=== PATIENT | male | born 1960 | race Caucasian/White ===

== ENCOUNTER 2018-12-09 09:52 | Emergency (ER) | payer OTHER ==
[2018-12-09 09:59] VITALS: TEMP 98.4
[2018-12-09] MEDS ORDERED: DIPH,PERTUS(ACELL)TETVAC-LF 0.5 ML VIAL IM ONE (10:19)
[2018-12-09] MEDS ORDERED: ceFAZolin IN SWFI 2 GM/20 ML SYRINGE IVP STA (10:19)
[2018-12-09] MEDS ORDERED: HYDROmorphone 1 MG/ML 1 ML SYRINGE IVP STA (10:21)
--- NOTE | 2018-12-09 10:26 | ED ---
General Adult HPI - General Chief complaint: Skin/Abscess/Foreign Body Stated complaint: hand injury Time Seen by Provider: 12/09/18 10:05 Source: patient, EMS, RN notes reviewed Mode of arrival: EMS Limitations: no limitations - History of Present Illness Initial comments: Patient is a pleasant 58-year-old male presenting to the emergency Department wi th left hand injury. Incident occurred just prior to arrival. Patient was helping another person do some work using a table saw. Patient accidentally cut his hand. He states he is not inattentive. Injury is left hand, more so the small finger. Patient has difficulty making a fist and moving his hand. Discomfort is somewhat severe. Patient denies any other area of injury. Patient is right-hand dominant. Patient does have history of previous left small finger injury with deformity. No head injury or loss of consciousness. No neck or back pain. No chest pain or dyspnea. No abdominal pain. Unclear last tetanus immunization. - Related Data Home Medications Medication Instructions Recorded Confirmed No Known Home Medications 12/09/18 12/09/18 Allergies Allergy/AdvReac Type Severity Reaction Status Date / Time No Known Allergies Allergy Verified 12/09/18 10:33 Review of Systems ROS Statement: Those systems with pertinent positive or pertinent negative responses have been documented in the HPI. ROS Other: All systems not noted in ROS Statement are negative. Constitutional: Denies: fever Eyes: Denies: eye pain ENT: Denies: ear pain Respiratory: Denies: cough Cardiovascular: Denies: chest pain Endocrine: Denies: fatigue Gastrointestinal: Denies: abdominal pain Genitourinary: Denies: dysuria Musculoskeletal: Reports: as per HPI. Denies: back pain Skin: Denies: rash Neurological: Denies: headache Past Medical History Additional Past Medical History / Comment(s): hep C History of Any Multi-Drug Resistant Organisms: MRSA Date of last positivie culture/infection: 2008 MDRO Source:: back Past Surgical History: Hernia Repair Past Psychological History: Anxiety, Depression Smoking Status: Current every day smoker Past Alcohol Use History: Occasional Past Drug Use History: Marijuana General Exam Limitations: no limitations General appearance: alert Head exam: Present: atraumatic, normocephalic Eye exam: Present: normal appearance Neck exam: Present: normal inspection. Absent: tenderness Respiratory exam: Present: normal lung sounds bilaterally Cardiovascular Exam: Present: regular rate, normal rhythm GI/Abdominal exam: Present: soft. Absent: tenderness Left Hand Wrist exam: Present: tenderness, laceration, other (Patient has large left hand laceration of the palmar side extending from the thenar eminence to the small finger. There is exposed tendon and muscle. Patient does have partial flexion of the thumb and index finger. Patient does not have significant movement of the middle through small fingers. Small finger is deformed. Cap refill of each finger is less than 2-3 seconds. Patient does have minimal sensation of index through small fingers distally. Patient does have good sensation of the thumb.) Back exam: Present: normal inspection. Absent: tenderness Neurological exam: Present: alert, other (Left hand weakness secondary to laceration) Psychiatric exam: Present: normal affect, normal mood Skin exam: Present: other (Large hand laceration) Course Vital Signs 12/09/18 12/09/18 09:55 10:55 Temperature 98.4 F Pulse Rate 50 L 54 L Respiratory 20 18 Rate Blood Pressure 189/91 197/97 O2 Sat by Pulse 99 95 Oximetry - Reevaluation(s) Reevaluation #1: 12/09/18 10:35 Yahaira Jaramillo with orthopedics was notified. She is finishing up an OR case at this time. 12/09/18 10:40 Wound was irrigated with saline and Betadine 12/09/18 11:07 Case was discussed with Christine with orthopedics who states patient will need to be transferred. Our hand surgeons are not available at this time. 12/09/18 11:23 Case was discussed with Dr. maloney with orthopedics will accept transfer. Case also discussed with Dr. Forrest to the emergency department will accept transfer. Medical Decision Making - Lab Data Result diagrams: 12/09/18 10:04 12/09/18 10:04 Lab Results 12/09/18 12/09/18 Range/Units 10:04 10:04 WBC 5.8 (3.8-10.6) k/uL RBC 4.38 (4.30-5.90) m/uL Hgb 14.1 (13.0-17.5) gm/dL Hct 43.0 (39.0-53.0) % MCV 98.0 (80.0-100.0) fL MCH 32.2 (25.0-35.0) pg MCHC 32.9 (31.0-37.0) g/dL RDW 12.7 (11.5-15.5) % Plt Count 264 (150-450) k/uL Neutrophils % 64 % Lymphocytes % 23 % Monocytes % 6 % Eosinophils % 2 % Basophils % 1 % Neutrophils # 3.8 (1.3-7.7) k/uL Lymphocytes # 1.4 (1.0-4.8) k/uL Monocytes # 0.3 (0-1.0) k/uL Eosinophils # 0.1 (0-0.7) k/uL Basophils # 0.0 (0-0.2) k/uL Sodium 138 (137-145) mmol/L Potassium 4.1 (3.5-5.1) mmol/L Chloride 105 (98-107) mmol/L Carbon Dioxide 27 (22-30) mmol/L Anion Gap 6 mmol/L BUN 23 H (9-20) mg/dL Creatinine 0.65 L (0.66-1.25) mg/dL Est GFR (CKD-EPI)AfAm >90 (>60 ml/min/1.73 sqM) Est GFR (CKD-EPI)NonAf >90 (>60 ml/min/1.73 sqM) Glucose 145 H (74-99) mg/dL Calcium 8.7 (8.4-10.2) mg/dL Total Bilirubin 0.5 (0.2-1.3) mg/dL AST 66 H (17-59) U/L ALT 72 (21-72) U/L Alkaline Phosphatase 79 (38-126) U/L Total Protein 6.8 (6.3-8.2) g/dL Albumin 3.5 (3.5-5.0) g/dL Critical Care Time Critical Care Time: Yes Total Critical Care Time: 32 Disposition Clinical Impression: Hand laceration, Tendon laceration Disposition: OTHER INSTITUTION NOT DEFINED Is patient prescribed a controlled substance at d/c from ED?: No Referrals: [facility],Clinic [Primary Care Provider] - 1-2 days Time of Disposition: 11:23 - Out of Hospital Transfer - Req. Specs Out of Hospital Transfer - Requested Specifics: Other Emergency Center
--- NOTE | 2018-12-09 10:35 | XR ---
EXAMINATION TYPE: XR hand limited LT DATE OF EXAM: 12/09/2018 CLINICAL HISTORY: Table saw injury with pain. TECHNIQUE: Frontal and lateral images of the left hand are attempted. COMPARISON: None. FINDINGS: There is acute comminuted displaced fracture through the fifth metacarpal head. There also appears to be fifth MCP joint dislocation with overlap. Punctate densities are suspicious for soft t issue foreign body near fracture. Flexion in the fifth finger is seen distal to this. There is linear lucency consistent with laceration injury overlying metacarpals likely through the Barrientos surface. N o additional fracture is evident. Mild to moderate degenerative changes throughout the phalanges is i ncidentally seen. IMPRESSION: There is acute comminuted displaced fracture through the fifth metacarpal head with dist al intra-articular extension and MCP joint dislocation. Soft tissue foreign body suspected. (Initial encounter closed type post traumatic fracture)
[2018-12-09 10:47] LABS: Basophils % (A) 1 %; Eosinophils # (A) 0.1 k/uL (0-0.7); Eosinophils % (A) 2 %; HGB 14.1 gm/dL (13.0-17.5); Lymphocytes # (A) 1.4 k/uL (1.0-4.8); Lymphocytes % (A) 23 %; MCH 32.2 pg (25.0-35.0); MCHC 32.9 g/dL (31.0-37.0); Mean Platelet Volume 7.4; Monocytes # (A) 0.3 k/uL (0-1.0); Monocytes % (A) 6 %; Neutrophils # (A) 3.8 k/uL (1.3-7.7); Neutrophils % (A) 64 %; Platelet Count 264 k/uL (150-450); RBC 4.38 m/uL (4.30-5.90); RDW 12.7 % (11.5-15.5); WBC 5.8 k/uL (3.8-10.6)
[2018-12-09 10:56] VITALS: RESP 18
[2018-12-09 11:03] LABS: ALT 72 U/L (21-72); AST 66 U/L (17-59); Albumin 3.5 g/dL (3.5-5.0); Alkaline Phosphatase 79 U/L (38-126); Anion Gap 6 mmol/L; Blood Urea Nitrogen 23 mg/dL (9-20); Calcium 8.7 mg/dL (8.4-10.2); Carbon Dioxide 27 mmol/L (22-30); Chloride 105 mmol/L (98-107); Glucose 145 mg/dL (74-99); Potassium 4.1 mmol/L (3.5-5.1); Sodium 138 mmol/L (137-145); Total Bilirubin 0.5 mg/dL (0.2-1.3); Total Protein 6.8 g/dL (6.3-8.2)
[2018-12-09 11:37] LABS: INR 1.1 (<1.2); Prothrombin Time 11.1 sec (9.0-12.0)
[2018-12-09 12:18] VITALS: PULSE 59
[2018-12-09 12:20] VITALS: BP 188/99
== END 2018-12-09 11:55 | disposition other institution (70) ==
LOC: EC 09:52
DX: S56.428A Laceration of extensor muscle, fascia and tendon of left little finger at forearm level, initial encounter (principal); F17.200 Nicotine dependence, unspecified, uncomplicated; Z86.14 Personal history of Methicillin resistant Staphylococcus aureus infection; Z23 Encounter for immunization; Z87.828 Personal history of other (healed) physical injury and trauma; W27.0XXA Contact with workbench tool, initial encounter; Y93.89 Activity, other specified; Y92.89 Other specified places as the place of occurrence of the external cause
CPT/HCPCS: 36415; 80053; 85025; 85610; 85730; 90471; 90715; 96374; 96375; 99285